=== PATIENT | female | born 1955 | race Caucasian/White ===

== ENCOUNTER 2018-04-14 10:17 | Outpatient (CLI) | payer BC ==
[~2018-04-14 10:17] MED LIST: ADVIL 200MG TA200 MG PO; ALLEGRA 60MG TA60 MG PO; ANTI-DIARRHEAL2 MG PO; ASPIRIN 32325 MG/TAB PO; ATENOLOL50 MG PO; CALCIUM 6001 TA1 PO; CEPHALEXIN500 M1 PO; CINNAMON500 MG PO; COREG12.5 MG PO; CRESTOR20 MG PO; ELIQUIS 2.5 PO; EPA FISH OIL1000 MG PO; FLONASEALLERGY NS; FLUOXETINE; GLUCOPHAGE1000 MG PO; GLUCOTROL XL10 MG PO; HCTZ 25MG25 MG PO; HCTZ12.5TAB PO; K-TAB10 PO; LIPITOR 40MG TA40 MG PO; MULTIVITAMIN WI1 CTB PO; NATURAL E400 IU PO; NEXIUM 40MG40 MG PO; NEXIUM40 MG PO; NORCO 325 MG-51 TAB PO; OMEGA-3 FISH1200 MG PO; PERCOCET 325 MG1 TA2 PO; POTASSIUM CHLO10 ME2 PO; PROVENTIL0.09 MG/A1 IH; PROZAC 20MG20 MG PO; SIMVASTATIN10 MG PO; SYSTANE LUBRICAN5 ML OP; TENORMIN 2525 MG/TAB PO; TRADJENTA5 MG PO; TRULICITY0.75 MG/0. SQ; ULTRACET 325 MG1 TAB PO; ULTRACET TABL1 UDTAB PO; ULTRAM 50MG TAB50 MG PO; VITAMIN C BUFF500 MG PO; VITAMIN D32000 I1 PO; VITAMIN E1000 U/CAP PO; ZESTRIL 20MG TA20 MG PO; ZOFRAN8 MG PO; ZYRTEC 10MG10 MG PO; [UNRECOGNIZED DRUG - OTHER] PO
[2018-04-14] MEDS ORDERED: NORVASC 5MG5 MG/TAB PO (11:57)
[2018-04-14] MEDS ORDERED: TRULICITY1.5 MG/0.5 SQ (11:58)
[2018-04-14] MEDS ORDERED: PROZAC 20MG20 MG PO (11:59)
[2018-04-14] MEDS ORDERED: PROTONIX 40MG T40 MG PO (11:59)
[2018-04-14] MEDS ORDERED: ELIQUIS 5MG PO (12:00)
[2018-04-14] MEDS ORDERED: ASPIRIN 81M81 MG/TA2 PO (12:00)
[2018-04-14] MEDS ORDERED: GLUCOTROL XL10 MG PO (12:01)
[2018-04-14] MEDS ORDERED: NATURAL E400 IU PO (12:04)
[2018-04-14] MEDS ORDERED: MASON NATURAL1200 MG PO (12:05)
[2018-04-14] MEDS ORDERED: MELATONIN5 M1 SL (12:06)
[2018-04-14] MEDS ORDERED: SYSTANE 0.4%-0.1 SOL OP (12:08)
[2018-04-14] MEDS ORDERED: CLEOCIN HCL300 MG PO (13:05)
[2018-04-14 13:25] VITALS: BP 162/95; PULSE 96; TEMP 98.4
[2018-04-14 13:50] VITALS: BP 140/76; PULSE 85
[2018-04-14 14:05] VITALS: BP 143/70; PULSE 85
[2018-04-14 14:20] VITALS: BP 150/70; PULSE 83
[2018-04-14 14:50] VITALS: BP 148/69; PULSE 82
[2018-04-14 15:20] VITALS: BP 140/70; PULSE 87
== END 2018-04-14 18:00 | disposition home or self-care (01) ==
LOC: COL.RAD 10:17
DX: I08.1 Rheumatic disorders of both mitral and tricuspid valves (principal); Z95.818 Presence of other cardiac implants and grafts
CPT/HCPCS: J2250; J3010

== ENCOUNTER 2020-07-26 15:16 | Inpatient (IN) | payer BC ==
[~2020-07-26] VITALS: Ht 152.4 cm; Wt 59.5 kg
[~2020-07-26 15:16] MED LIST changes: +ASPIRIN 81M81 MG/TA2 PO; +CLEOCIN HCL300 MG PO; +ELIQUIS 5MG PO; +MASON NATURAL1200 MG PO; +MELATONIN5 M1 SL; +NORVASC 5MG5 MG/TAB PO; +PROTONIX 40MG T40 MG PO; +SYSTANE 0.4%-0.1 SOL OP; +TRULICITY1.5 MG/0.5 SQ
[2020-07-27 10:02] LABS: BASO # 0.1 (0.0-0.2); BASO % 0.5 % (0.0-2.0); EOS # 0.1 (0.0-0.7); EOS % 0.5 % (0-4.0); GRAN # 8.7 (1.4-6.5); GRAN % 85.1 % (42.2-75.2); HEMOGLOBIN 10.4 g/dl (12.5-16.0); LYMPH % 10.1 % (20.0-51.0); MEAN CELL VOLUME 88 fl (80.0-100.0); MEAN CORPUSCULAR HEMOGLOBIN 28 pg (27.0-31.0); MEAN CORPUSCULAR HGB CONC 32 g/dl (33.0-37.0); MEAN PLATELET VOLUME 10.4 fl (7.4-10.4); MONO # 0.4 (0.1-0.6); MONO % 3.4 % (1.7-9.3); PLATELET COUNT 242 K/mm3 (130-400); RED BLOOD COUNT 3.66 M/mm3 (4.10-5.30); REDCELL DISTRIBUTION WIDTH-CV 15.3 % (11.5-14.5)
[2020-07-27 10:11] LABS: HEMATOCRIT 32.3 % (37.0-47.0)
[2020-07-27 10:12] LABS: ALBUMIN 4.3 gm/dL (3.5-5.0); CREATININE, serum 6.33 (0.52-1.25); PHOSPHOROUS 8.4 mg/dL (2.5-4.5); POTASSIUM 3.9 mmol/L (3.4-5.0)
[2020-07-27] MEDS ORDERED: LIPITOR 40MG TA40 MG PO (10:26)
[2020-07-27] MEDS ORDERED: ONE-A-DAY ESSE1 EACH PO (10:26)
[2020-07-27] MEDS ORDERED: COREG12.5 MG PO (10:26)
[2020-07-27] MEDS ORDERED: TRULICITY1.5 MG/0.5 SQ (10:27)
[2020-07-27] MEDS ORDERED: MELATONIN5 M1 SL (10:30)
[2020-07-27] MEDS ORDERED: KLOR-CON SPRIN10 MEQ PO (10:30)
[2020-07-27] MEDS ORDERED: IMODIUM 2MG CAPS2 MG PO (10:31)
--- NOTE | 2020-07-27 11:00 | NUR ---
Admission assessment completed, alert/oriented, vital signs stable, denies pain or disocmfort, heart RRR/dsital pulses are palpable, no peripheral edema noted, lungs CTA and patient denies any SOA or resp.difficulty, Meds/pharm/allergies reviewd and updated, notified Nephrology of arrival, will continue to monitor
[2020-07-27 11:28] VITALS: BP 166/72; PULSE 84; TEMP 98.3
[2020-07-27 11:58] VITALS: BP 166/72; PULSE 84; TEMP 98.3
[2020-07-27 12:18] LABS: IRON,SERUM 71 ug/dL (35-150)
[2020-07-27 12:28] LABS: TOTAL IRON BINDING CAPACITY 273 ug/dL (265-497)
[2020-07-27 18:29] VITALS: BP 177/68; PULSE 81; TEMP 98.3
[2020-07-27 19:19] VITALS: BP 192/63; PULSE 80; TEMP 98.9
--- NOTE | 2020-07-27 20:30 | NUR ---
Pt assessment completed and documented. Pt resting in bed at this time trying to sleep. Pt alert and oriented x4. Complaints of mild headache. States she does not want anything for pain at this time. Pt up to use restroom, however she missed the hat in toilet to send for urine samples. PRN hydralazine given for BP of 192/63. Pt educated to call when she obtained urine sample to send to lab and to get blood drawn. Hat repositioned in toilet to attempt to catch next sample. Pt denies any needs/concerns. Call light within reach. Will continue to monitor.
[2020-07-27 20:49] VITALS: BP 184/68; PULSE 81
[2020-07-28] VITALS: BP 138/61; PULSE 77; TEMP 98.1
[2020-07-28 00:50] LABS: COLLECTION METHOD CLEAN CATCH
[2020-07-28 00:57] LABS: MUCOUS Present /lpf; PH 5 (5-8); URINE APPEARANCE Hazy; URINE BACTERIA None Seen /hpf; URINE BILIRUBIN Negative (NEGATIVE); URINE BLOOD 1+ (NEGATIVE); URINE COLOR Yellow; URINE GLUCOSE 1+ (NEGATIVE); URINE KETONE Negative (NEGATIVE); URINE LEUKOCYTE ESTERASE 2+ (NEGATIVE); URINE NITRATE Negative (NEGATIVE); URINE PROTEIN(semi-quant) 2+ (NEGATIVE); URINE UROBILINOGEN Negative (NEGATIVE)
[2020-07-28 01:18] LABS: URINE PROTEIN:CREAT RATIO 1.88 (0.00-0.14)
[2020-07-28 01:43] LABS: CREATININE, serum 6.15 (0.52-1.25); FRACTIONAL EXCRETION OF NA+ 0.8 %
[2020-07-28 04:05] VITALS: BP 125/81; PULSE 77; TEMP 97.8
--- NOTE | 2020-07-28 06:13 | NUR ---
Pt had uneventful night. States she slept well. IVF infusing per orders. Call light within reach
--- NOTE | 2020-07-28 06:27 | NUR ---
Fasting blood sugar 41 this AM. Juice and xiomara crackers with peanut butter given. Will monitor after finishing juice and snack.
[2020-07-28 06:44] LABS: BASO # 0.1 (0.0-0.2); BASO % 0.5 % (0.0-2.0); EOS # 0.1 (0.0-0.7); EOS % 0.7 % (0-4.0); GRAN # 7.6 (1.4-6.5); GRAN % 70.4 % (42.2-75.2); LYMPH # 2.4 (1.2-3.4); LYMPH % 22.2 % (20.0-51.0); MEAN CELL VOLUME 88 fl (80.0-100.0); MEAN CORPUSCULAR HGB CONC 33 g/dl (33.0-37.0); MEAN PLATELET VOLUME 10.8 fl (7.4-10.4); MONO # 0.6 (0.1-0.6); PLATELET COUNT 241 K/mm3 (130-400); REDCELL DISTRIBUTION WIDTH-CV 15.2 % (11.5-14.5)
[2020-07-28 06:47] LABS: HEMOGLOBIN 9.5 g/dl (12.5-16.0); MEAN CORPUSCULAR HEMOGLOBIN 29 pg (27.0-31.0)
[2020-07-28 06:57] LABS: ALBUMIN 3.8 gm/dL (3.5-5.0); CREATININE, serum 5.94 (0.52-1.25); PHOSPHOROUS 7.4 mg/dL (2.5-4.5); POTASSIUM 3.5 mmol/L (3.4-5.0)
--- NOTE | 2020-07-28 08:01 | NUR ---
Report given to NICK Jasmine
[2020-07-28 08:24] VITALS: BP 136/64; PULSE 77; PULSE 98; TEMP 98
--- NOTE | 2020-07-28 11:21 | NUR ---
SW met with the patient to discuss discharge plan. The patient lives in [place] with her son, Prashanth (ph#[phone]), Prashanth's ex-girlfriend, and three grandchildren. She reports independence with ADLs and does not have any DME. The patient's PCP is Dr. Dayron Helms and she receives her medications at [facility]. She reports no difficulties obtaining her meds. The patient's DPOA-HC is in EMR and it designates her cousin, Jennifer Napoles (ph#[phone]). Jennifer lives in [place]. The patient plans to return home with her family and she states that her son, Hanny (ph#[phone]), will most likely transport her back home. SW attempted to contact the patient's cousin, Jennifer, to review d/c plan. SW left her a voicemail. SW to continue to follow as needed.
[2020-07-28 12:00] VITALS: BP 125/50; PULSE 68; TEMP 97.8
[2020-07-28 16:00] VITALS: BP 127/53; PULSE 71; TEMP 98.4
--- NOTE | 2020-07-28 18:41 | NUR ---
Pt assessment completed and charted, medications administered per nov. pt is A&O, independent in room, on room air, breathing is even and unlabored. Pt denies SOB, N/V/D, chest pain, abdominal pain, numbness or tingling. Pt denies general pain. pt has been lethargic occasionally throughout day. RFA IV flushes w/o difficulty, IVF at 50ml/hr running w/o issue for 1 bag, will end tonight. Pt has had issues w/ blood sugars throughout day. Pt received oral glucose gel this morning at shift change w/ nightman nurse, pt had BS <60. 146 BS at 0730. Pt didnt eat much for lunch. BS 69 prior to receiving lunch, given juice x2, soda, jello, crackers & pb, applesauce and lunch over the next few hours. pt remained low and asymptomatic. pt given another oral glucose gel, at 1615 and BS rechecked at 1700, 173 result. Other flynn no issues expressed throughout day. pt to have dialysis cath placement and fistula Friday07/31/2020. LS cta, BS active, HRRR, pulses strong bilaterally.
[2020-07-28 20:00] VITALS: BP 134/54; PULSE 73; TEMP 98.2
--- NOTE | 2020-07-28 20:30 | NUR ---
Initial shift assessment done- denies pain at this time, has been resting well, IV fluids of 1/2NS at 50cc hr, just this bag then will be dc,d. Understands we still need a stool for occult blood testing-pt states understanding
[2020-07-29] VITALS (7 sets, daily range): BP systolic 107–145; BP diastolic 40–88; PULSE 72–86; TEMP 97.5–99.3
[2020-07-29 06:42] LABS: BASO # 0.1 (0.0-0.2); BASO % 0.5 % (0.0-2.0); EOS # 0.2 (0.0-0.7); EOS % 1.9 % (0-4.0); GRAN # 6.3 (1.4-6.5); LYMPH # 2.1 (1.2-3.4); LYMPH % 22.1 % (20.0-51.0); MEAN CELL VOLUME 88 fl (80.0-100.0); MEAN CORPUSCULAR HGB CONC 32 g/dl (33.0-37.0); MEAN PLATELET VOLUME 10.9 fl (7.4-10.4); MONO # 0.8 (0.1-0.6); MONO % 8.2 % (1.7-9.3); PLATELET COUNT 201 K/mm3 (130-400); RED BLOOD COUNT 3.08 M/mm3 (4.10-5.30); REDCELL DISTRIBUTION WIDTH-CV 15.1 % (11.5-14.5)
[2020-07-29 06:45] LABS: HEMATOCRIT 27.2 % (37.0-47.0); HEMOGLOBIN 8.7 g/dl (12.5-16.0); MEAN CORPUSCULAR HEMOGLOBIN 28 pg (27.0-31.0)
[2020-07-29 06:53] LABS: ALBUMIN 3.3 gm/dL (3.5-5.0); CALCIUM 7.8 mg/dL (8.4-10.2); CREATININE, serum 5.57 (0.52-1.25); POTASSIUM 3.7 mmol/L (3.4-5.0)
--- NOTE | 2020-07-29 09:15 | NUR ---
PT PLEASANT, AOX4, DENIES PAIN OR DISCOMFORT, SHADES IN ROOM RAISED PER PT REQUEST, INT CDI W/ NO ERYTHEMA, PT ASSESSMENT PERFORMED, BS RECHECKED AT 134, VITALS REVIEWED, NO OTHER NEEDS AT THIS TIME.
--- NOTE | 2020-07-29 12:05 | NUR ---
PT TAKING PHOSLO REPORTS DISCOMFORT IN CHEST SAYING IT "HURTS BECAUSE IT FEELS STUCK".
--- NOTE | 2020-07-29 17:34 | NUR ---
PT PLEASANT, AOX4, UNEVENTFUL SHIFT, VITALS STABLE, PT DENIES PAIN/DISCOMFORT, PT BS STABLE DURING SHIFT. PT IND IN ROOM, NO OTHER NEEDS AT THIS TIME.
--- NOTE | 2020-07-29 20:30 | NUR ---
Initial shift assessment done- denies pain- state feeling fine- just waiting for Friday fistula placement and dialysis catheter w/dialysis , states did eat ok today, no requests today, has some grahmn crackers for a HS snack-does not want anything else to eat
[2020-07-30 04:38] VITALS: BP 138/50; PULSE 78; TEMP 98.3
--- NOTE | 2020-07-30 06:00 | NUR ---
Quiet night- slept well, no requests, blood sugar 106 this morning
--- NOTE | 2020-07-30 07:10 | NUR ---
PT L ARM RESTRICTION FOLLOWED. MEDS GIVEN, ASSESSMENT PERFORMED, PT REPORTS MILD R EYE PAIN, REFUSED NEED FOR PHARMACOLOGICAL INTERVENTION. PT AOX4, PLEASANT, TALKING ABOUT FAMILY. CONSENT TO BE OBTAINED FOR PROCEDURE TOMORROW. NO OTHER NEEDS AT THIS TIME.
[2020-07-30 07:17] LABS: BASO # 0.1 (0.0-0.2); BASO % 0.7 % (0.0-2.0); EOS # 0.2 (0.0-0.7); EOS % 2.5 % (0-4.0); GRAN # 4.8 (1.4-6.5); GRAN % 63.7 % (42.2-75.2); LYMPH # 1.8 (1.2-3.4); LYMPH % 23.8 % (20.0-51.0); MEAN CELL VOLUME 90 fl (80.0-100.0); MEAN CORPUSCULAR HGB CONC 32 g/dl (33.0-37.0); MEAN PLATELET VOLUME 11.1 fl (7.4-10.4); MONO # 0.7 (0.1-0.6); PLATELET COUNT 186 K/mm3 (130-400); RED BLOOD COUNT 3.01 M/mm3 (4.10-5.30); REDCELL DISTRIBUTION WIDTH-CV 14.9 % (11.5-14.5)
[2020-07-30 07:23] LABS: HEMOGLOBIN 8.6 g/dl (12.5-16.0); MEAN CORPUSCULAR HEMOGLOBIN 29 pg (27.0-31.0)
[2020-07-30 07:32] LABS: ALBUMIN 3.5 gm/dL (3.5-5.0); CALCIUM 8.5 mg/dL (8.4-10.2); CREATININE, serum 5.71 (0.52-1.25); POTASSIUM 4.1 mmol/L (3.4-5.0)
[2020-07-30 08:22] VITALS: BP 129/57; PULSE 66; TEMP 98.3
[2020-07-30 11:27] VITALS: BP 130/52; PULSE 76; TEMP 97.9
--- NOTE | 2020-07-30 12:00 | NUR ---
EDUCATED PT ON DIALYSIS CATH CARE. INFORMED PT SHE WAS NOT ALLOWED TO SHOWER. EXPLAINED HIGH RATES OF INFECTION WITH DIALYSIS CATH'S IF THEY GOT WET. EXPLAINED FISTULA MATURITY TIME OF 6 WEEKS. EXPLAINED WHEN DIALYSIS CATH WAS REMOVED SHE COULD SHOWER AGAIN. NO OTHER NEEDS AT THIS TIME.
[2020-07-30 16:26] VITALS: BP 136/57; PULSE 77; TEMP 98.8
--- NOTE | 2020-07-30 17:21 | NUR ---
PT AOX4, CONSENT SIGNED ON CHART, EDUCATED ON BATHING RESTRICTIONS WITH DIALYSIS CATH, LOVENOX ON HOLD FOR AM, NPO ORDER AT MIDNIGHT PLACED, PT PLEASANT, PT DENIES PAIN/DISCOMFORT, PT INDEPENDENT IN ROOM, UNEVENTFUL SHIFT.
[2020-07-30 19:55] VITALS: BP 144/60; PULSE 77; TEMP 98.2
--- NOTE | 2020-07-30 21:30 | NUR ---
Pt assessment completed and documented. Pt resting in bed at this time reading a book. Pt alert and oriented x4. Denies pain. INT to RF removed due to redness and pain. Pt denies any other pain at this time. PT verbalized understanding that she is NPO at midnight. Pt denies any other needs/concerns at this time. Call light within reach. Will continue to monitor
[2020-07-31] VITALS: BP 128/51; PULSE 80; TEMP 98.4
[2020-07-31 04:00] VITALS: BP 156/77; PULSE 78; TEMP 98.1
--- NOTE | 2020-07-31 05:38 | NUR ---
Pt had uneventful night. Rested well overnight. No complaints of pain. Pt has been NPO since midnight. Currently resting in bed. Denies any needs. Call light within reach
[2020-07-31 06:49] LABS: BASO # 0.1 (0.0-0.2); BASO % 0.9 % (0.0-2.0); EOS # 0.2 (0.0-0.7); EOS % 2.7 % (0-4.0); GRAN # 5.4 (1.4-6.5); GRAN % 65.9 % (42.2-75.2); LYMPH # 1.8 (1.2-3.4); MEAN CELL VOLUME 89 fl (80.0-100.0); MEAN CORPUSCULAR HGB CONC 32 g/dl (33.0-37.0); MEAN PLATELET VOLUME 11.4 fl (7.4-10.4); MONO # 0.7 (0.1-0.6); MONO % 8.1 % (1.7-9.3); PLATELET COUNT 195 K/mm3 (130-400); RED BLOOD COUNT 3.24 M/mm3 (4.10-5.30); REDCELL DISTRIBUTION WIDTH-CV 14.7 % (11.5-14.5)
[2020-07-31 06:55] LABS: HEMATOCRIT 28.8 % (37.0-47.0); HEMOGLOBIN 9.2 g/dl (12.5-16.0); MEAN CORPUSCULAR HEMOGLOBIN 28 pg (27.0-31.0)
[2020-07-31 07:01] LABS: ALBUMIN 3.9 gm/dL (3.5-5.0); CALCIUM 8.7 mg/dL (8.4-10.2); CREATININE, serum 6.16 (0.52-1.25); POTASSIUM 4.2 mmol/L (3.4-5.0)
[2020-07-31 07:36] VITALS: BP 145/61; PULSE 82; TEMP 98.5
--- NOTE | 2020-07-31 09:23 | NUR ---
Initial visit; Patient thanked Drugless Physician for stopping in and letting her know of the availability of spiritual care.
[2020-07-31 16:31] VITALS: BP 154/45; PULSE 81; TEMP 98
--- NOTE | 2020-07-31 18:05 | NUR ---
Pt assessment completed and charted. Medications administered per nov. pt was NPO this morning for procedure, dialysis cath and fistula placement. pt on room air, breathing is even and unlabored, denies SOB, N/V/D, chest pain, abdominal pain, dizziness. Pt had RFA INT IV that was infiltrated. New 20G IV started to RAC, flushes w/o difficulty and good blood return. Pulses strong bilaterally. HRRR, LS cta, no edema, BS active X4. Pt went down for procedure late this morning and then to dialysis after. Pt arrived back to room around 1615. A&O. HAMZAH fistula in place, bruit and thrill present, site CDI. Rt chest dialysis cath in place, dressing CDI. Pt denies any other needs.
--- NOTE | 2020-07-31 19:00 | NUR ---
Pt was sleeping when this nurse went for a bedside handover. Pt asked for immodium for diarrhoea, NICK Cochran provided. No further needs at this time, will keep monitoring.
--- NOTE | 2020-07-31 19:01 | NUR ---
Pt requesting Immodium, administered PRN per nov. Pt states she has some diarrhea, not seen by this nurse, pt states she "ate meat" and it happens sometimes. Will monitor.
[2020-07-31 19:11] VITALS: BP 130/58; PULSE 83; TEMP 98.3
[2020-07-31 22:41] LABS: HEPATITIS B SURFACE ANTIBODY <2.0 (()); HEPATITIS B SURFACE ANTIGEN Negative (Negative); HEPATITIS C VIRUS ANTIBODY Negative (Negative)
[2020-07-31 23:52] VITALS: BP 120/50; BP 139/61; PULSE 77; PULSE 80; TEMP 97.4; TEMP 98.8
--- NOTE | 2020-08-01 00:38 | NUR ---
Pt assessment completed and charted, alert, oriented, roomair. Meds provided as per MAR, tolerated well. Pt is settled on her bed, call light is on reach. No further needs at this time.
--- NOTE | 2020-08-01 01:30 | NUR ---
Pt complained of slight pain on her left upper extrimity, gave her warm blanket to wrap up her hand and checked after 30 minutes. Pt stated that the pain has gone. Pulse is present and blood return is in less than 3 minutes. No further needs at this time.
[2020-08-01 04:00] VITALS: BP 139/63; PULSE 81; TEMP 98.4
--- NOTE | 2020-08-01 05:57 | NUR ---
Pt had an uneventful night, slept through out the night. Pt complained of pain over her neck/procedure site and over her hands in the morning. Warm blanket provided as per pt request to wrap her hand. Pulse and blood return present on both upper extrimities. Morning meds provided. No further needs at this time.
[2020-08-01 06:41] LABS: BASO # 0.1 (0.0-0.2); BASO % 0.6 % (0.0-2.0); EOS # 0.1 (0.0-0.7); EOS % 1.6 % (0-4.0); GRAN # 6.2 (1.4-6.5); GRAN % 68.8 % (42.2-75.2); LYMPH # 1.6 (1.2-3.4); LYMPH % 18.3 % (20.0-51.0); MEAN CELL VOLUME 88 fl (80.0-100.0); MEAN CORPUSCULAR HGB CONC 32 g/dl (33.0-37.0); MEAN PLATELET VOLUME 11.6 fl (7.4-10.4); MONO # 0.9 (0.1-0.6); MONO % 10.4 % (1.7-9.3); PLATELET COUNT 181 K/mm3 (130-400); RED BLOOD COUNT 3.19 M/mm3 (4.10-5.30); REDCELL DISTRIBUTION WIDTH-CV 14.8 % (11.5-14.5)
[2020-08-01 06:42] LABS: MEAN CORPUSCULAR HEMOGLOBIN 28 pg (27.0-31.0)
[2020-08-01 07:01] LABS: ALBUMIN 3.7 gm/dL (3.5-5.0); CALCIUM 8.6 mg/dL (8.4-10.2); CREATININE, serum 4.17 (0.52-1.25); PHOSPHOROUS 4.2 mg/dL (2.5-4.5); POTASSIUM 4.1 mmol/L (3.4-5.0)
[2020-08-01 07:39] VITALS: BP 152/47; PULSE 90; TEMP 98.3
--- NOTE | 2020-08-01 07:40 | NUR ---
Pt alert, resting in bed. Asessment completed. Rt. I.J. dialysis catheter CbI, LT. arm AV fistula bruit and thrill present. Pt denies pain. Voices no acute concerns. INT site to Rt. A.C. space intact, no redness noted. Lt. arm restrictions noted.
--- NOTE | 2020-08-01 09:42 | NUR ---
Pt assessment completed and charted. Medications administered per nov. Pt A&O, independent in room, on room air, breathing is even and unlabored. HRRR, LS cta, BS active X4. Pt has Rt chest dialysis cath in place, dressing CDI. HAMZAH fistula, site CDI, thrill and bruit present. Pulses palpable. No edema present. pt states she has some pain to rt chest dialysis cath, rating it 4/10, received PRN [facility] per nov. pt down for dialysis @ 0840 by WC. No issues noted. Pt denies any other chest pain, dizziness, SOB, N/V/D, numbness or tingling.
[2020-08-01] MEDS ORDERED: ELIQUIS 2.5 PO (10:07)
[2020-08-01] MEDS ORDERED: NORVASC 10MG10 MG PO (10:08)
[2020-08-01] MEDS ORDERED: PHOS LO PO (10:09)
[2020-08-01] MEDS ORDERED: FOLIC ACID 11 MG/TA1 PO (10:11)
[2020-08-01] MEDS ORDERED: VTAMINC250TA PO (10:12)
--- NOTE | 2020-08-01 11:54 | NUR ---
Pt back from dialysis at this time. No issues noted.
--- NOTE | 2020-08-01 13:13 | NUR ---
SW followed up with the patient to review d/c plan. The patient states that she is ready to get back home. She had no concerns for SW. The patient is to discharge back home with her family today, 08/01. No additional needs at this time.
--- NOTE | 2020-08-01 13:32 | NUR ---
Discharge instructions discussed and reviewed w/ patient who verbalized understanding. RAC INT dc'd w/ catheter tip intact, no issues noted. All questions answered. No further needs. Awaiting ride from son.
--- NOTE | 2020-08-01 14:50 | NUR ---
Pt son arrived, escorted oout via ambulatory to ER entrance, by BETO baker. No further needs.
== END 2020-08-01 14:52 | disposition home or self-care (01) | DRG 674 ==
LOC: MEDICAL 07-27 08:42
PROVIDERS: Surgery; ADMIT Internal Medicine Nephrology
PROC: 02HV33Z Insertion of Infusion Device into Superior Vena Cava, Percutaneous Approach (ICD-10-PCS; 2020-07-31)
PROC: 03180ZD Bypass Left Brachial Artery to Upper Arm Vein, Open Approach (ICD-10-PCS; principal; 2020-07-31 11:00)
PROC: 0JH63XZ Insertion of Tunneled Vascular Access Device into Chest Subcutaneous Tissue and Fascia, Percutaneous Approach (ICD-10-PCS; 2020-07-31 11:00)
PROC: 5A1D70Z Performance of Urinary Filtration, Intermittent, Less than 6 Hours Per Day (ICD-10-PCS; 2020-08-01)
DX: N17.9 Acute kidney failure, unspecified (principal); I12.0 Hypertensive chronic kidney disease with stage 5 chronic kidney disease or end stage renal disease; E87.2 Acidosis; N18.6 End stage renal disease; E11.22 Type 2 diabetes mellitus with diabetic chronic kidney disease; E11.21 Type 2 diabetes mellitus with diabetic nephropathy; F32.9 Major depressive disorder, single episode, unspecified; M19.90 Unspecified osteoarthritis, unspecified site; D50.9 Iron deficiency anemia, unspecified; K21.9 Gastro-esophageal reflux disease without esophagitis; E83.39 Other disorders of phosphorus metabolism; D63.1 Anemia in chronic kidney disease; E83.51 Hypocalcemia; Z79.82 Long term (current) use of aspirin; Z79.84 Long term (current) use of oral hypoglycemic drugs; Z88.0 Allergy status to penicillin; Z88.1 Allergy status to other antibiotic agents; Z88.2 Allergy status to sulfonamides; Z79.01 Long term (current) use of anticoagulants; Z86.73 Personal history of transient ischemic attack (TIA), and cerebral infarction without residual deficits
CPT/HCPCS: C1750; J0690; J1644; J1650; J2250; J2405; J2704; J2916; J2997; J7030; Q5105

== ENCOUNTER 2020-08-13 00:32 | Observation (INO) | payer BC ==
[2020-08-13] VITALS (560 sets, daily range): BP systolic 146–186; BP diastolic 72–93; PULSE 80–102; TEMP 97.3–99.4; O2SAT 58–100
[~2020-08-13] VITALS: Ht 152.4 cm; Wt 60.0 kg
[~2020-08-13 00:32] MED LIST changes: +FOLIC ACID 11 MG/TA1 PO; +IMODIUM 2MG CAPS2 MG PO; +KLOR-CON SPRIN10 MEQ PO; +NORVASC 10MG10 MG PO; +ONE-A-DAY ESSE1 EACH PO; +PHOS LO PO; +VTAMINC250TA PO
[2020-08-13 01:29] LABS: BASO # 0.1 (0.0-0.2); BASO % 0.4 % (0.0-2.0); EOS # 0.2 (0.0-0.7); EOS % 0.9 % (0-4.0); GRAN # 15.3 (1.4-6.5); GRAN % 85.8 % (42.2-75.2); LYMPH # 1.1 (1.2-3.4); LYMPH % 6.4 % (20.0-51.0); MEAN CELL VOLUME 92 fl (80.0-100.0); MEAN CORPUSCULAR HGB CONC 31 g/dl (33.0-37.0); MEAN PLATELET VOLUME 10.5 fl (7.4-10.4); MONO # 1.1 (0.1-0.6); MONO % 6.1 % (1.7-9.3); PLATELET COUNT 208 K/mm3 (130-400); RED BLOOD COUNT 3.33 M/mm3 (4.10-5.30); REDCELL DISTRIBUTION WIDTH-CV 15.9 % (11.5-14.5)
[2020-08-13 01:30] LABS: HEMATOCRIT 30.6 % (37.0-47.0); HEMOGLOBIN 9.6 g/dl (12.5-16.0); INR 1.1 (0.8-3.0); MEAN CORPUSCULAR HEMOGLOBIN 29 pg (27.0-31.0); PROTHROMBIN TIME 12.8 SECONDS (9.7-12.8)
[2020-08-13 01:33] LABS: PARTIAL THROMBOPLASTIN TIME 28.8 SECONDS (26.0-37.0)
[2020-08-13 01:35] LABS: ALBUMIN 3.8 gm/dL (3.5-5.0); BILIRUBIN,TOTAL 0.5 mg/dL (0.0-1.0); CALCIUM 8.1 mg/dL (8.4-10.2); CREATININE, serum 3.83 (0.52-1.25); MAGNESIUM 1.6 mg/dL (1.6-2.3); PHOSPHOROUS 3.6 mg/dL (2.5-4.5); POTASSIUM 3.5 mmol/L (3.4-5.0); TOTAL PROTEIN 6.7 gm/dL (6.4-8.2)
[2020-08-13 01:46] LABS: TROPONIN-I 0.022 ng/mL (0.000-0.035)
--- NOTE | 2020-08-13 06:48 | NUR ---
PT ADMITTED TO ICU FROM ED ON ROOM AIR WEARING A MASK, ACCOMPANIED BY ED RN. PT ABLE TO TRANSFER TO BED ON HER OWN. DENIES ANY PAIN OR SOB. BP NOTED TO BE ELEVATED HOWEVER PT RECIEVED BP MEDS IN ED, WILL CONTINUE TO MONITOR AND CONTACTS PROVIDER IF FURTHER DOSING NEEDED. OTHER VSS. PT ABLE TO GET UP WITH STAND-BY ASSIST TO BEDSIDE COMMODE. WILL CONTINUE TO MONITOR PT STATUS AND INTERVENE NEEDED.
--- NOTE | 2020-08-13 07:15 | NUR ---
Report received from Lorna RN and care resumed.
[2020-08-13 10:16] LABS: COLLECTION METHOD CLEAN CATCH
[2020-08-13 11:23] LABS: PH 8 (5-8); SQUAMOUS EPITHELIAL 0-2 /hpf; URINE APPEARANCE Clear; URINE BACTERIA None Seen /hpf; URINE BILIRUBIN Negative (NEGATIVE); URINE BLOOD Negative (NEGATIVE); URINE COLOR Straw; URINE GLUCOSE 2+ (NEGATIVE); URINE KETONE Negative (NEGATIVE); URINE LEUKOCYTE ESTERASE Negative (NEGATIVE); URINE NITRATE Negative (NEGATIVE); URINE PROTEIN(semi-quant) 2+ (NEGATIVE); URINE RBC 0-2 /hpf; URINE UROBILINOGEN Negative (NEGATIVE)
--- NOTE | 2020-08-13 12:32 | NUR ---
Dr Joshi in to see pt at this time.
--- NOTE | 2020-08-13 13:24 | NUR ---
SW contacted patient by phone to complete intake process. Patient currently resides in [place] with her son Hanny [phone] and cousin Annetta as support and EMR, DPOA is Annetta [phone]. Patient is independent of ADL's and does not use any DME's. Patients provider continues to be Dr. Helms, with no upcoming appointments noted. Patient indicated that she continues to get her medications from [facility] with no concerns. PAtient has declined HHs at this time, indicated that she is surrounded by many supports.
--- NOTE | 2020-08-13 20:00 | NUR ---
Patient resting in be; alert and oriented and in no distress. Currenlty denies any shortness of air or pain. Reports right hand is "tingly". Reports this is chronic since getting dialysis fistula and physician aware. Left radial pulse +1 and hand slightly cooler than the right. Good sensation to hand. Provided warm pack for hand per patient request. VS; Call light within reach.
[2020-08-14] VITALS (151 sets, daily range): BP systolic 130–164; BP diastolic 58–83; PULSE 75–85; TEMP 98.2–98.6; O2SAT 79–99
--- NOTE | 2020-08-14 05:04 | NUR ---
Notified [facility] physician that patients COVID PCR was negative. Ok to remove from precautions.
--- NOTE | 2020-08-14 05:35 | NUR ---
Director Of Corporate Sponsorships assisted patient upstairs to medical floor via wheelchair. Patient alert and oriented and in no distress upon transfer.
--- NOTE | 2020-08-14 06:00 | NUR ---
Patient to medical room 352, from ICU, at this time. Comfort measures met and patint is oriented to fall precaution protocol and call light.
--- NOTE | 2020-08-14 07:35 | NUR ---
PT REPORT RCVD FROM NICK OH. MEDICATIONS WERE DISCONTINUED UPON TRANSFER, PT IS CURRENTLY NAUSEATED, WILL CONTACT PHARMACY TO GET MEDCATIONS RESTARTED.
--- NOTE | 2020-08-14 10:19 | NUR ---
PT HAS DECLINED THE NEED FOR ANYTHING THIS AM. SHE HAS AMBULATED TO THE BATHROOM AND BACK TO HER CHAIR WITH LIMITED ASSISTANCE NEEDED. PT HAS NO COMPLAINT OF PAIN OR DISCOMFORT. FISTULA IN THE HAMZAH IS MATURING, BUT THE PULSES ARE STRONG. NO FURTHER CONCERNS.
--- NOTE | 2020-08-14 11:55 | NUR ---
stopped by when patient was sleeping. prayed for patient outside door.
--- NOTE | 2020-08-14 18:41 | NUR ---
DR. MARTINES CAME BY TO ROUND ON PT LATE IN THE EVENING. NO NOTES HAVE BEEN WRITTEN REGARDING A PLAN FOR THIS PATIENT AT THIS TIME, NOR COMMUNICATION REGARDING A PLAN WITH THIS RN. PT HAS DENIED THE NEED FOR ANYTHING AT THIS TIME, AND HAS BEEN AFEBRILE WITH NO N/V. PT VITAL SIGNS HAVE REMAINED STABLE TODAY. NO FURTHER CONCERNS AT THIS TIME. WILL REPORT TO HOME BASED ASSISTANT RN.
--- NOTE | 2020-08-14 20:58 | NUR ---
Pt assessment completed and documented. Pt resting in bed at this time watching TV. Alert and oriented x4. Denies pain. INT to right forearm CDI. Fistula to LUE with audible bruit and strong palpable thrill. Pt denies any other needs at this time. Call light within reach. Will continue to monitor.
[2020-08-15] VITALS: BP 161/71; PULSE 85; TEMP 98.1
[2020-08-15 04:28] VITALS: BP 158/63; BP 178/87; PULSE 89; TEMP 97.8
--- NOTE | 2020-08-15 06:38 | NUR ---
Pt states she rested well overnight. Complaints of left hand pain and numbness to fingers. Glove at bedside for hand which pt states helps her pain. Pt denies any needs/concerns at this time. Call light within reach.
--- NOTE | 2020-08-15 07:02 | NUR ---
Report given to NICK Linder
[2020-08-15 07:44] VITALS: BP 167/59; PULSE 84; TEMP 97.9
--- NOTE | 2020-08-15 10:48 | NUR ---
Follow up visit from the geospatial information technologist. No needs right now.
[2020-08-15] MEDS ORDERED: APRESOLINE 25MG25 MG PO (10:55)
[2020-08-15 11:38] VITALS: BP 155/62; PULSE 80; TEMP 98.2
--- NOTE | 2020-08-15 12:01 | NUR ---
PT SHOULD GO TO DIALYSIS AND THEN DISCHARGE AFTER THAT. PT HAS HAD NO COMPLAINTS THIS MORNING. NO FURTHER CONCERNS.
--- NOTE | 2020-08-15 13:14 | NUR ---
PT WILL GO TO DIALYSIS SOON SHE IS DONE EATING.
[2020-08-15 14:09] LABS: CALCIUM 9.1 mg/dL (8.4-10.2); CREATININE, serum 6.5 (0.52-1.25); POTASSIUM 4.2 mmol/L (3.4-5.0)
[2020-08-15 14:10] LABS: BASO # 0.1 (0.0-0.2); BASO % 0.9 % (0.0-2.0); EOS # 0.2 (0.0-0.7); EOS % 2.2 % (0-4.0); GRAN # 6.7 (1.4-6.5); GRAN % 66.1 % (42.2-75.2); LYMPH # 2.3 (1.2-3.4); LYMPH % 22.6 % (20.0-51.0); MEAN CELL VOLUME 93 fl (80.0-100.0); MEAN CORPUSCULAR HGB CONC 31 g/dl (33.0-37.0); MEAN PLATELET VOLUME 10.9 fl (7.4-10.4); MONO # 0.8 (0.1-0.6); PLATELET COUNT 307 K/mm3 (130-400); RED BLOOD COUNT 3.41 M/mm3 (4.10-5.30); REDCELL DISTRIBUTION WIDTH-CV 15.5 % (11.5-14.5)
[2020-08-15 14:11] LABS: HEMATOCRIT 31.6 % (37.0-47.0); HEMOGLOBIN 9.7 g/dl (12.5-16.0); MEAN CORPUSCULAR HEMOGLOBIN 28 pg (27.0-31.0)
--- NOTE | 2020-08-15 16:59 | NUR ---
PT HAS DISCHARGED POST DIALYSIS.
== END 2020-08-15 17:01 | disposition home or self-care (01) ==
LOC: COL.ER 00:32 → MEDICAL 02:32 → ICU 02:32 → MEDICAL 02:32
PROVIDERS: Emergency Medicine; ADMIT Internal Medicine Nephrology
DX: J81.0 Acute pulmonary edema (principal); I16.1 Hypertensive emergency; I12.0 Hypertensive chronic kidney disease with stage 5 chronic kidney disease or end stage renal disease; E11.22 Type 2 diabetes mellitus with diabetic chronic kidney disease; N18.6 End stage renal disease; D63.1 Anemia in chronic kidney disease; Z99.2 Dependence on renal dialysis; E78.5 Hyperlipidemia, unspecified; F32.9 Major depressive disorder, single episode, unspecified; M19.90 Unspecified osteoarthritis, unspecified site; K21.9 Gastro-esophageal reflux disease without esophagitis; Z86.73 Personal history of transient ischemic attack (TIA), and cerebral infarction without residual deficits; E83.42 Hypomagnesemia; Z20.828 Contact with and (suspected) exposure to other viral communicable diseases; Z79.51 Long term (current) use of inhaled steroids; Z79.82 Long term (current) use of aspirin; Z79.01 Long term (current) use of anticoagulants
CPT/HCPCS: OP; G0378; J0692; J1644; J1940; J1956; J2405; J3370; J7030; J7050; Q5105

== ENCOUNTER 2020-09-19 08:00 | Day surgery (SDC) | payer BC ==
[~2020-09-19] VITALS: Ht 152.4 cm; Wt 59.9 kg
[~2020-09-19 08:00] MED LIST changes: +APRESOLINE 25MG25 MG PO
[2020-09-19 09:21] VITALS: BP 115/81; PULSE 94; TEMP 98
[2020-09-19] MEDS ORDERED: VITAMIN C500 MG PO (09:44)
[2020-09-19] MEDS ORDERED: ULTRAM 50MG TAB50 MG PO (11:37)
[2020-09-19 11:38] VITALS: BP 133/60; PULSE 84; TEMP 96.9
--- NOTE | 2020-09-19 11:38 | NUR ---
Pt to [facility] bay 5 via cart from OR. Pt drowsy, but arouses to verbal stimuli. Pt denies pain or nausea. Quickly falls back to sleep. Exophen to left upper extremity is clean, dry, and intact. +thrill to LUE, and +2 radial pulse. Will continue to monitor. Call light within reach.
[2020-09-19 11:53] VITALS: BP 136/64; PULSE 82
--- NOTE | 2020-09-19 11:53 | NUR ---
Pt continues to rest. Pt awake. Sprite and jello given. Will continue to monitor. Call light within reach.
[2020-09-19 12:08] VITALS: BP 154/62; PULSE 80
--- NOTE | 2020-09-19 12:08 | NUR ---
Pt tolerating food and fluids without difficulties. Will continue to monitor. Call light within reach.
[2020-09-19 12:23] VITALS: BP 165/61; PULSE 81
--- NOTE | 2020-09-19 12:23 | NUR ---
IV site discontinued with all parts intact. Pt up to dress. Discharge instructions reviewed. Pt voices understanding.
--- NOTE | 2020-09-19 13:20 | NUR ---
Pt escorted to private car via wheel chair. Pt accompanied home by her family.
== END 2020-09-19 13:20 | disposition home or self-care (01) ==
LOC: SDCO 08:00
DX: T82.898A Other specified complication of vascular prosthetic devices, implants and grafts, initial encounter (principal); I12.0 Hypertensive chronic kidney disease with stage 5 chronic kidney disease or end stage renal disease; E11.22 Type 2 diabetes mellitus with diabetic chronic kidney disease; N18.6 End stage renal disease; Z99.2 Dependence on renal dialysis; Z79.82 Long term (current) use of aspirin; Z79.84 Long term (current) use of oral hypoglycemic drugs; D63.1 Anemia in chronic kidney disease; Z86.73 Personal history of transient ischemic attack (TIA), and cerebral infarction without residual deficits; E83.51 Hypocalcemia; Z88.1 Allergy status to other antibiotic agents; Z88.2 Allergy status to sulfonamides; E78.5 Hyperlipidemia, unspecified; I48.91 Unspecified atrial fibrillation; F32.9 Major depressive disorder, single episode, unspecified; M19.90 Unspecified osteoarthritis, unspecified site; Z20.828 Contact with and (suspected) exposure to other viral communicable diseases
CPT/HCPCS: C1768; J0690; J2704; J3010; J7030

== ENCOUNTER 2020-12-15 14:38 | Emergency (ER) | payer MEDICARE ==
[~2020-12-15] VITALS: Ht 152.4 cm; Wt 60.5 kg
[~2020-12-15 14:38] MED LIST changes: +VITAMIN C500 MG PO
[2020-12-15 15:30] LABS: BASO % 0.5 % (0.0-2.0); EOS # 0.2 (0.0-0.7); EOS % 2.4 % (0-4.0); GRAN # 5.7 (1.4-6.5); GRAN % 64.8 % (42.2-75.2); LYMPH % 22.4 % (20.0-51.0); MEAN CELL VOLUME 90 fl (80.0-100.0); MEAN CORPUSCULAR HGB CONC 33 g/dl (33.0-37.0); MEAN PLATELET VOLUME 10.2 fl (7.4-10.4); MONO # 0.9 (0.1-0.6); MONO % 9.7 % (1.7-9.3); PLATELET COUNT 194 K/mm3 (130-400); RED BLOOD COUNT 2.82 M/mm3 (4.10-5.30); REDCELL DISTRIBUTION WIDTH-CV 16.2 % (11.5-14.5)
[2020-12-15 15:31] LABS: HEMOGLOBIN 8.4 g/dl (12.5-16.0); MEAN CORPUSCULAR HEMOGLOBIN 30 pg (27.0-31.0)
[2020-12-15 15:32] LABS: HEMATOCRIT 25.3 % (37.0-47.0)
[2020-12-15 15:43] LABS: ALBUMIN 4.1 gm/dL (3.5-5.0); BILIRUBIN,TOTAL 0.3 mg/dL (0.0-1.0); CALCIUM 8.7 mg/dL (8.4-10.2); CREATININE, serum 5.14 (0.52-1.25); POTASSIUM 3.5 mmol/L (3.4-5.0); TOTAL PROTEIN 7.6 gm/dL (6.4-8.2)
[2020-12-15 16:15] VITALS: BP 172/76; PULSE 96; TEMP 98.8
[2021-02-15] MEDS ORDERED: ELIQUIS 2.5 PO (09:42)
[2021-02-15] MEDS ORDERED: PHOS LO PO (09:45)
== END 2020-12-15 16:20 | disposition home or self-care (01) ==
LOC: COL.ER 14:38
PROVIDERS: Emergency Medicine
DX: I12.0 Hypertensive chronic kidney disease with stage 5 chronic kidney disease or end stage renal disease (principal); N18.6 End stage renal disease; E11.21 Type 2 diabetes mellitus with diabetic nephropathy; E78.5 Hyperlipidemia, unspecified; F32.9 Major depressive disorder, single episode, unspecified; Z79.01 Long term (current) use of anticoagulants; Z99.2 Dependence on renal dialysis; Z86.73 Personal history of transient ischemic attack (TIA), and cerebral infarction without residual deficits; Z88.1 Allergy status to other antibiotic agents; Z88.8 Allergy status to other drugs, medicaments and biological substances; Z88.2 Allergy status to sulfonamides; Z79.82 Long term (current) use of aspirin; Z79.84 Long term (current) use of oral hypoglycemic drugs

== ENCOUNTER 2020-12-21 09:33 | Day surgery (SDC) | payer MEDICARE ==
[~2020-12-21] VITALS: Ht 152.4 cm; Wt 60.9 kg
[2020-12-21] MEDS ORDERED: FOLIC ACID 11 MG/TA1 PO (10:12)
[2020-12-21 10:49] VITALS: BP 96/58; PULSE 71; TEMP 98.1
[2020-12-21 12:05] VITALS: BP 107/51; PULSE 70; TEMP 97
[2020-12-21 12:20] VITALS: BP 119/56; PULSE 71
[2020-12-21 12:35] VITALS: BP 129/60; PULSE 77
--- NOTE | 2020-12-21 13:04 | NUR ---
[address] TO [facility] VIA CART. PATIENT AMBULATED TO CHAIR WITH SBA. WARM BLANKET GIVEN FOR COMFORT. VSS. PATIENT'S COUSIN AT CHAIRSIDE. PATIENT REQUESTED A PEPSI AND A BLUEBERRY MUFFIN. DR. RAHMAN IN ROOM SPEAKING WITH PATIENT REGARDING RESULTS. 1220 PATIENT TOOK MUFFIN AND PEPSI PO. DENIES ANY COMPLAINTS. TOLERATED INTAKE WELL. 1235 IV D/C'D. DISCHARGE INSTRUCTIONS GIVEN TO PATIENT VERBALLY AND IN WRITING. PATIENT VERBALIZED UNDERSTANDING. 1251 PATIENT DRESSED SELF. D/C'D TO POV VIA W/C WITH FAMILY.
[2021-02-15] MEDS ORDERED: ELIQUIS 2.5 PO (09:42)
[2021-02-15] MEDS ORDERED: PHOS LO PO (09:45)
== END 2020-12-21 12:51 | disposition home or self-care (01) ==
LOC: SDCO 09:33
DX: R19.4 Change in bowel habit (principal); R19.7 Diarrhea, unspecified; K62.89 Other specified diseases of anus and rectum; K64.8 Other hemorrhoids; K21.9 Gastro-esophageal reflux disease without esophagitis; M19.90 Unspecified osteoarthritis, unspecified site; J45.909 Unspecified asthma, uncomplicated; I12.0 Hypertensive chronic kidney disease with stage 5 chronic kidney disease or end stage renal disease; E11.22 Type 2 diabetes mellitus with diabetic chronic kidney disease; N18.6 End stage renal disease; G43.909 Migraine, unspecified, not intractable, without status migrainosus; E78.2 Mixed hyperlipidemia; F32.9 Major depressive disorder, single episode, unspecified; Z79.82 Long term (current) use of aspirin; Z98.51 Tubal ligation status; Z86.73 Personal history of transient ischemic attack (TIA), and cerebral infarction without residual deficits; Z20.822 Contact with and (suspected) exposure to COVID-19; Z79.891 Long term (current) use of opiate analgesic; Z79.84 Long term (current) use of oral hypoglycemic drugs; Z79.01 Long term (current) use of anticoagulants; Z88.8 Allergy status to other drugs, medicaments and biological substances; Z88.1 Allergy status to other antibiotic agents; Z79.51 Long term (current) use of inhaled steroids; Z76.82 Awaiting organ transplant status; Z99.2 Dependence on renal dialysis
CPT/HCPCS: J2704; J7030

== ENCOUNTER 2021-01-07 22:07 | Observation (INO) | payer MEDICARE ==
[~2021-01-07] VITALS: Ht 152.4 cm; Wt 64.9 kg
[2021-01-07 22:47] LABS: BASO # 0.1 (0.0-0.2); BASO % 0.7 % (0.0-2.0); EOS # 0.3 (0.0-0.7); EOS % 3.7 % (0-4.0); GRAN # 5.4 (1.4-6.5); GRAN % 60.2 % (42.2-75.2); LYMPH # 2.4 (1.2-3.4); LYMPH % 27.3 % (20.0-51.0); MEAN CELL VOLUME 97 fl (80.0-100.0); MEAN CORPUSCULAR HGB CONC 30 g/dl (33.0-37.0); MONO # 0.7 (0.1-0.6); MONO % 7.9 % (1.7-9.3); PLATELET COUNT 208 K/mm3 (130-400); RED BLOOD COUNT 2.89 M/mm3 (4.10-5.30); REDCELL DISTRIBUTION WIDTH-CV 15.6 % (11.5-14.5)
[2021-01-07 22:52] LABS: HEMATOCRIT 27.9 % (37.0-47.0); HEMOGLOBIN 8.4 g/dl (12.5-16.0); MEAN CORPUSCULAR HEMOGLOBIN 29 pg (27.0-31.0)
[2021-01-07 22:57] LABS: ALBUMIN 3.9 gm/dL (3.5-5.0); BILIRUBIN,TOTAL 0.2 mg/dL (0.0-1.0); CREATININE, serum 5.88 (0.52-1.25); POTASSIUM 4.3 mmol/L (3.4-5.0)
[2021-01-07 23:08] LABS: TROPONIN-I 0.02 ng/mL (0.000-0.035)
[2021-01-07 23:24] LABS: COLLECTION METHOD CLEAN CATCH
[2021-01-07 23:35] LABS: PH 6 (5-8); URINE APPEARANCE Hazy; URINE BACTERIA Rare /hpf; URINE BILIRUBIN Negative (NEGATIVE); URINE BLOOD Negative (NEGATIVE); URINE COLOR Yellow; URINE GLUCOSE 2+ (NEGATIVE); URINE KETONE Negative (NEGATIVE); URINE LEUKOCYTE ESTERASE 1+ (NEGATIVE); URINE NITRATE Negative (NEGATIVE); URINE PROTEIN(semi-quant) 3+ (NEGATIVE); URINE RBC None Seen /hpf; URINE UROBILINOGEN Negative (NEGATIVE)
[2021-01-07] MEDS ORDERED: NORVASC 5MG5 MG/TAB PO (23:41)
[2021-01-08] VITALS (8 sets, daily range): BP systolic 120–168; BP diastolic 44–68; PULSE 73–85; TEMP 97.6–99.6
--- NOTE | 2021-01-08 02:08 | NUR ---
PATIENT TO FLOOR AT 2350, PATIENT APPEARS INDEPENDENT IN AMBULATION WITH STEADY GAIT, HOWEVER ADVISED TO CALL FOR ASSISTANCE WHEN NEEDING TO GET UP. DR. MARTINES CONTACTED FOR ORDERS; HE STATED HIS MANUFACTURING QUALITY ENGINEER WILL REVIEW HOME MEDS IN A.M.. ORDERS FOR PRN MEDS, LABS AND GENERAL DIET ORDERS RECEIVED.
--- NOTE | 2021-01-08 05:11 | NUR ---
PATIENT SLEPT AFTER ARRIVING TO FLOOR; N/C OR NEEDS VOICED AT THIS TIME.
[2021-01-08 05:51] LABS: MEAN CELL VOLUME 95 fl (80.0-100.0); MEAN CORPUSCULAR HGB CONC 31 g/dl (33.0-37.0); PLATELET COUNT 209 K/mm3 (130-400); REDCELL DISTRIBUTION WIDTH-CV 15.7 % (11.5-14.5)
[2021-01-08 05:54] LABS: ALBUMIN 4.1 gm/dL (3.5-5.0); CALCIUM 8.2 mg/dL (8.4-10.2); CREATININE, serum 6.23 (0.52-1.25); HEMATOCRIT 27.6 % (37.0-47.0); HEMOGLOBIN 8.5 g/dl (12.5-16.0); MEAN CORPUSCULAR HEMOGLOBIN 29 pg (27.0-31.0); PHOSPHOROUS 8.3 mg/dL (2.5-4.5)
--- NOTE | 2021-01-08 07:41 | NUR ---
Patient resting in bed at this time. Patient does not C/O any pain or discomfort at this time. Patient denies any further needs. Will continue to monitor. Wendy Ramirez will be assisting with cares. Call light within reach.
--- NOTE | 2021-01-08 09:59 | NUR ---
Patient taken down for dialysis.
--- NOTE | 2021-01-08 11:50 | NUR ---
Patient back from dialysis. Tolerated procedure well. Patient is currently sitting up in bed eating. Will continue to monitor. Call light within reach.
--- NOTE | 2021-01-08 12:11 | NUR ---
Patient tolerated HD tx, removed 1.8 mL of fluid. Attempted more fluid removal but c/o cramping & C profiling on Crit Line monitor. Patient's cramping resolved before leaving the dialysis room.
--- NOTE | 2021-01-08 14:41 | NUR ---
SCDs were just placed on the patient. She is now laying comfortably in bed with her call light and needed items within reach.
--- NOTE | 2021-01-08 14:50 | NUR ---
This instructor supervised care provided by LAMONTE between [id number], agree with documentation.
--- NOTE | 2021-01-08 15:22 | NUR ---
Coo & [employer] Founder met with the patient to complete intake. The patient lives independently in [place] with her son, the son's ex-girlfriend and three children, and four cats. The patient denies DME use. The patient's PCP is Dr. Helms in [place] and patient receives medications from [facility]. The patient has advanced directives in the EMR. PT/OT are recommending home. The patient typically takes herself to dialysis and her son or granddaughter pick her up if needed. The patient plans to return home at discharge. Discharge disposition: Home to [place]
--- NOTE | 2021-01-08 19:29 | NUR ---
Patient had an uneventful day. Had dialysis earlier in the shift and tolerated the procedure well. Has been resting in her room the remainder of the day. Scheduled meds given. Patient denies any pain, discomfort, or further needs at this time. Call light within reach. Bedside report given to NICK Rivera.
[2021-01-09 01:21] VITALS: BP 136/51; PULSE 78; TEMP 98.5
[2021-01-09 05:56] VITALS: BP 134/43; PULSE 72; TEMP 98.3
--- NOTE | 2021-01-09 06:48 | NUR ---
awake resting in bed, bedside shift report received from NICK Rivera
[2021-01-09 07:05] LABS: BASO % 0.6 % (0.0-2.0); EOS # 0.3 (0.0-0.7); EOS % 4.3 % (0-4.0); GRAN # 3.4 (1.4-6.5); GRAN % 49.3 % (42.2-75.2); LYMPH # 2.5 (1.2-3.4); LYMPH % 35.2 % (20.0-51.0); MEAN CELL VOLUME 95 fl (80.0-100.0); MEAN CORPUSCULAR HGB CONC 31 g/dl (33.0-37.0); MEAN PLATELET VOLUME 10.5 fl (7.4-10.4); MONO # 0.7 (0.1-0.6); MONO % 10.5 % (1.7-9.3); PLATELET COUNT 206 K/mm3 (130-400); RED BLOOD COUNT 2.84 M/mm3 (4.10-5.30); REDCELL DISTRIBUTION WIDTH-CV 15.5 % (11.5-14.5)
[2021-01-09 07:09] LABS: HEMOGLOBIN 8.4 g/dl (12.5-16.0); MEAN CORPUSCULAR HEMOGLOBIN 30 pg (27.0-31.0)
[2021-01-09 07:20] LABS: ALBUMIN 3.8 gm/dL (3.5-5.0); CALCIUM 7.9 mg/dL (8.4-10.2); CREATININE, serum 4.75 (0.52-1.25); PHOSPHOROUS 7.3 mg/dL (2.5-4.5); POTASSIUM 3.7 mmol/L (3.4-5.0)
--- NOTE | 2021-01-09 07:40 | NUR ---
awake resting in bed, has had breakfast and tolerated well, full assessment completed, see interventions for furthere info, denies needs
[2021-01-09 07:48] VITALS: BP 140/48; PULSE 78; TEMP 98.2
--- NOTE | 2021-01-09 11:25 | NUR ---
discharge instructions given to patient, verbalizes understanding, discharged ambulatory
--- NOTE | 2021-01-09 12:46 | NUR ---
First visit from the scaler. No needs right now.
[2021-02-15] MEDS ORDERED: ELIQUIS 2.5 PO (09:42)
[2021-02-15] MEDS ORDERED: PHOS LO PO (09:45)
[2021-08-24] MEDS ORDERED: COUMADIN 5MG5 MG/TAB PO (22:58)
[2021-08-25] MEDS ORDERED: COUMADIN 22.5 MG/TAB PO (07:49)
== END 2021-01-09 11:25 | disposition home or self-care (01) ==
LOC: COL.ER 22:07 → MEDICAL 23:30
PROVIDERS: Emergency Medicine Emergency Medical Services; ADMIT Internal Medicine Nephrology
DX: R06.02 Shortness of breath (principal); Z86.73 Personal history of transient ischemic attack (TIA), and cerebral infarction without residual deficits; E11.22 Type 2 diabetes mellitus with diabetic chronic kidney disease; I12.0 Hypertensive chronic kidney disease with stage 5 chronic kidney disease or end stage renal disease; N18.6 End stage renal disease; D63.1 Anemia in chronic kidney disease; Z99.2 Dependence on renal dialysis; E78.5 Hyperlipidemia, unspecified; E83.39 Other disorders of phosphorus metabolism; M19.90 Unspecified osteoarthritis, unspecified site; F32.9 Major depressive disorder, single episode, unspecified
CPT/HCPCS: G0378; J1644; J7030; Q5105

== ENCOUNTER → 2021-02-15 | Outpatient (CLI) | payer MEDICARE ==
[~2021-02-15] VITALS: Ht 152.4 cm; Wt 63.8 kg
[~2021-02-15] MED LIST changes: +COUMADIN 22.5 MG/TAB PO; +COUMADIN 5MG5 MG/TAB PO; +FLONASE NASAL S16 GM NS; +OMNICEF 300MG300 MG PO
[2021-02-15 09:49] VITALS: BP 204/88; PULSE 94
[2021-02-15 11:00] VITALS: BP 195/98; PULSE 95
== END ==
LOC: COL.RAD 09:04
DX: Z45.2 Encounter for adjustment and management of vascular access device (principal); L98.8 Other specified disorders of the skin and subcutaneous tissue

== ENCOUNTER 2021-04-16 11:51 | Emergency (ER) | payer MEDICARE ==
[~2021-04-16] VITALS: Ht 152.4 cm; Wt 66.8 kg
[~2021-04-16 11:51] MED LIST changes: -COUMADIN 22.5 MG/TAB PO; -COUMADIN 5MG5 MG/TAB PO; -FLONASE NASAL S16 GM NS; -OMNICEF 300MG300 MG PO
[2021-04-16 12:18] VITALS: TEMP 98.9
[2021-04-16 13:08] LABS: BASO # 0.1 (0.0-0.2); BASO % 0.7 % (0.0-2.0); EOS # 0.2 (0.0-0.7); EOS % 1.8 % (0-4.0); GRAN # 10.2 (1.4-6.5); GRAN % 75.6 % (42.2-75.2); HEMOGLOBIN 10.9 g/dl (12.5-16.0); LYMPH # 1.9 (1.2-3.4); LYMPH % 14.3 % (20.0-51.0); MEAN CELL VOLUME 92 fl (80.0-100.0); MEAN CORPUSCULAR HEMOGLOBIN 29 pg (27.0-31.0); MEAN CORPUSCULAR HGB CONC 32 g/dl (33.0-37.0); MEAN PLATELET VOLUME 10.2 fl (7.4-10.4); MONO % 7.2 % (1.7-9.3); PLATELET COUNT 250 K/mm3 (130-400); RED BLOOD COUNT 3.73 M/mm3 (4.10-5.30); REDCELL DISTRIBUTION WIDTH-CV 15.4 % (11.5-14.5)
[2021-04-16 13:09] LABS: HEMATOCRIT 34.3 % (37.0-47.0)
[2021-04-16 13:14] LABS: ALBUMIN 4.4 gm/dL (3.5-5.0); BILIRUBIN,TOTAL 0.6 mg/dL (0.0-1.0); CALCIUM 8.3 mg/dL (8.4-10.2); CREATININE, serum 6.42 (0.52-1.25)
[2021-04-16 13:26] LABS: TROPONIN-I 0.03 ng/mL (0.000-0.035)
[2021-04-16 14:43] VITALS: BP 161/71; PULSE 86
[2021-08-24] MEDS ORDERED: COUMADIN 5MG5 MG/TAB PO (22:58)
[2021-08-25] MEDS ORDERED: COUMADIN 22.5 MG/TAB PO (07:49)
[2021-08-27] MEDS ORDERED: FLONASE NASAL S16 GM NS (11:13)
[2021-08-27] MEDS ORDERED: OMNICEF 300MG300 MG PO (11:15)
== END 2021-04-16 14:43 | disposition home or self-care (01) ==
LOC: COL.ER 11:51
PROVIDERS: Personal Emergency Response Attendant
DX: R07.89 Other chest pain (principal); I12.0 Hypertensive chronic kidney disease with stage 5 chronic kidney disease or end stage renal disease; N18.6 End stage renal disease; E78.5 Hyperlipidemia, unspecified; Z86.73 Personal history of transient ischemic attack (TIA), and cerebral infarction without residual deficits; Z95.818 Presence of other cardiac implants and grafts; Z79.899 Other long term (current) drug therapy; Z79.01 Long term (current) use of anticoagulants

== ENCOUNTER 2021-09-26 14:24 | Emergency (ER) | payer MEDICARE ==
[~2021-09-26] VITALS: Ht 152.4 cm; Wt 66.8 kg
[~2021-09-26 14:24] MED LIST changes: +COUMADIN 22.5 MG/TAB PO; +COUMADIN 5MG5 MG/TAB PO; +FLONASE NASAL S16 GM NS; +OMNICEF 300MG300 MG PO
[2021-09-26 14:45] VITALS: TEMP 97.9
[2021-09-26 16:38] VITALS: BP 153/68; PULSE 67
== END 2021-09-26 16:38 | disposition home or self-care (01) ==
LOC: COL.ER 14:24
DX: R07.89 Other chest pain (principal); Z99.2 Dependence on renal dialysis

== ENCOUNTER 2021-10-02 15:27 | Emergency (ER) | payer MEDICARE ==
[~2021-10-02] VITALS: Ht 152.4 cm; Wt 66.8 kg
[2021-10-02 16:50] VITALS: TEMP 98.9
[2021-10-02 17:56] LABS: BASO # 0.1 K/mm3 (0.0-0.2); BASO % 0.3 % (0.0-2.0); EOS % 0.1 % (0.0-4.0); GRAN # 12.2 K/mm3 (1.4-6.5); GRAN % 83.8 % (42.2-75.2); LYMPH # 1.1 K/mm3 (1.2-3.4); LYMPH % 7.3 % (20.0-51.0); MEAN CELL VOLUME 90 fl (80.0-100.0); MEAN CORPUSCULAR HGB CONC 33 g/dl (33.0-37.0); MEAN PLATELET VOLUME 10.3 fl (7.4-10.4); MONO # 1.2 K/mm3 (0.1-0.6); PLATELET COUNT 228 K/mm3 (130-400); RED BLOOD COUNT 3.16 M/mm3 (4.10-5.30); REDCELL DISTRIBUTION WIDTH-CV 14.9 % (11.5-14.5)
[2021-10-02 17:58] LABS: HEMATOCRIT 28.4 % (37.0-47.0); HEMOGLOBIN 9.4 g/dl (12.5-16.0); MEAN CORPUSCULAR HEMOGLOBIN 30 pg (27-31)
[2021-10-02 18:16] LABS: ALBUMIN 2.8 gm/dL (3.4-4.8); BILIRUBIN,TOTAL 0.6 mg/dL (0.2-1.2); POTASSIUM 4.3 mmol/L (3.5-4.5); TOTAL PROTEIN 7.1 gm/dL (6.2-8.1)
[2021-10-02 19:13] LABS: TROPONIN-I 0.138 ng/mL (0.00-0.033)
[2021-10-02 19:34] LABS: CREATININE, serum 7.9 mg/dL (0.57-1.11)
[2021-10-02 19:59] LABS: ARTERIAL BLD GAS O2 SATURATION 95.5 % (92-100); ARTERIAL BLD GAS TCO2 CT 13.2; ARTERIAL BLOOD GAS BASE EXCESS -12.5 (-2-2); ARTERIAL BLOOD GAS HCO3 12.4 meq/L (22-26); ARTERIAL BLOOD GAS PCO2 25.5 mmHg (35-45); ARTERIAL BLOOD GAS PO2 77.5 mmHg (80-100); ARTERIAL BLOOD GAS pH 7.31 (7.35-7.45)
[2021-10-02 20:46] VITALS: BP 156/89; PULSE 87
== END 2021-10-02 20:46 | disposition home or self-care (01) ==
LOC: COL.ER 15:27
PROVIDERS: Physician Assistant
DX: E87.2 Acidosis (principal); J06.9 Acute upper respiratory infection, unspecified; D72.829 Elevated white blood cell count, unspecified; N18.6 End stage renal disease; Z99.2 Dependence on renal dialysis; Z95.818 Presence of other cardiac implants and grafts; Z79.01 Long term (current) use of anticoagulants; Z20.822 Contact with and (suspected) exposure to COVID-19
CPT/HCPCS: J2405